=== PATIENT | female | born 1995 | race Caucasian/White ===

== ENCOUNTER 2018-11-19 04:17 | Emergency (ER) | payer MEDICAID ==
[~2018-11-19] VITALS: Ht 162.6 cm; Wt 68.0 kg
--- NOTE | 2018-11-19 04:17 | NUR ---
PT BIB BY P FOR PRE-BOOK CLEARANCE. PT PLACED IN CHAIR E.
[2018-11-19 04:19] VITALS: BP 155/75
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
[2018-11-19 04:50] VITALS: BP 155/75
--- NOTE | 2018-11-19 04:50 | NUR ---
PATIENT BIB [facility]. PATIENT EXAMINED BY DR. LOPEZ. PATIENT MEDICALLY CLEARED AND RELEASED IN CUSTODY IN STABLE CONDITION. ORIGINAL PRE-BOOK FORM GIVEN TO OFFICER FABRICIO #[id number].
== END 2018-11-19 04:50 | disposition home or self-care (01) ==
LOC: MED 04:17
DX: Z02.89 Encounter for other administrative examinations (principal); V89.2XXA Person injured in unspecified motor-vehicle accident, traffic, initial encounter; Y93.89 Activity, other specified; Y92.89 Other specified places as the place of occurrence of the external cause; Y99.8 Other external cause status
CPT/HCPCS: 99283